=== PATIENT | male | born 1995 | race Caucasian/White ===

== ENCOUNTER 2019-10-20 21:24 | Emergency (ER) | payer OTHER ==
[~2019-10-20] VITALS: Ht 167.6 cm; Wt 80.0 kg
[2019-10-20 21:38] VITALS: BP 144/89
[2019-10-20] MEDS ORDERED: CLINDAMYCIN HCL 150MG CAPSULE PO SCH (23:30)
[2019-10-20] MEDS ORDERED: BACITRACIN ZINC OINT UDPKT TOP ONE (23:30)
[2019-10-20] MEDS ORDERED: TETANUS, DIPHTHERIA, PERTUSSIS VAC/PF 0.5ML (>7YR OLD) IM ONE (23:30)
[2019-10-20] MEDS ORDERED: ACETAMINOPHEN WITH CODEINE 300/30MG TABLET PO ONE (23:30)
[2019-10-20] MEDS ORDERED: LIDOCAINE HCL/PF 1% 10 MG/ML 5ML VIAL IJ ONE (23:30)
== END 2019-10-21 00:54 | disposition home or self-care (01) ==
LOC: ER 21:24
DX: S62.631B Displaced fracture of distal phalanx of left index finger, initial encounter for open fracture (principal); W01.10XA Fall on same level from slipping, tripping and stumbling with subsequent striking against unspecified object, initial encounter; Y93.89 Activity, other specified; Y92.89 Other specified places as the place of occurrence of the external cause; Z23 Encounter for immunization
CPT/HCPCS: 12001; 73140; 90471; 90715; 99284; J3490

== ENCOUNTER 2023-04-19 18:55 | Emergency (ER) | payer SELFPAY ==
[~2023-04-19] VITALS: Ht 165.1 cm; Wt 68.0 kg
[2023-04-19 19:03] VITALS: O2SAT 99
[2023-04-19] MEDS ORDERED: ACETAMINOPHEN 325MG TABLET PO STA (19:57)
[2023-04-19] MEDS ORDERED: ACET-2708 MT (20:12)
[2023-04-19 20:56] VITALS: BP 113/53; PULSE 67; RESP 20; TEMP 98
== END 2023-04-19 21:00 | disposition home or self-care (01) ==
LOC: ER 18:55
DX: R51.9 Headache, unspecified (principal); Z88.6 Allergy status to analgesic agent; Z88.0 Allergy status to penicillin; V98.8XXA Other specified transport accidents, initial encounter; Y93.89 Activity, other specified; Y92.89 Other specified places as the place of occurrence of the external cause; Y99.8 Other external cause status
CPT/HCPCS: 99282